=== PATIENT | female | born 1995 | race Caucasian/White ===

== ENCOUNTER 2024-07-11 13:22 | Emergency (ER) | payer OTHER ==
--- NOTE | 2024-07-11 14:03 | ED ---
Extremity Problem HPI - General Source: patient, RN notes reviewed Mode of arrival: ambulatory Limitations: no limitations <Sharron Pacheco - Last Filed: 07/11/24 14:01> - General Source: patient, RN notes reviewed Mode of arrival: ambulatory Limitations: no limitations - History of Present Illness MD Complaint: extremity pain, extremity swelling -: days(s) Location: right, other Radiation: none (Foot) Quality: aching Consistency: constant, intermittent Improves with: immobilization Worsens with: nothing, weight bearing, walking Associated Symptoms: denies other symptoms <Mike Cole - Last Filed: 07/19/24 19:28> - General Chief complaint: Extremity Problem,Nontraumatic Stated complaint: glass in foot Time Seen by Provider: 07/11/24 14:01 - History of Present Illness Initial comments: Quick [id number] female presenting with foreign body in right foot x 2 days. Patient reports she was walking barefoot in her cousins basement 2 nights ago and believes she stepped on a shard of glass. Has had pain with weightbearing on the heel of her foot since then and believes the shard of glass is lodged in the heel. Last tetanus unknown. (Sharron Pacheco) This is a 28-year-old female who believes she may have stepped on some glass still having some pain there (Mike Cole) - Related Data Allergies Allergy/AdvReac Type Severity Reaction Status Date / Time No Known Allergies Allergy Verified 07/11/24 13:39 Review of Systems ROS Other: All systems not noted in ROS Statement are negative. <Sharron Pacheco - Last Filed: 07/11/24 14:01> ROS Other: All systems not noted in ROS Statement are negative. <Mike Cole - Last Filed: 07/19/24 19:28> ROS Statement: Those systems with pertinent positive or pertinent negative responses have been documented in the HPI. Past Medical History Past Medical History: Asthma History of Any Multi-Drug Resistant Organisms: None Reported Past Surgical History: No Surgical Hx Reported Past Psychological History: Anxiety, Depression Smoking Status: Current every day smoker Past Alcohol Use History: None Reported Past Drug Use History: None Reported <Sharron Pacheco - Last Filed: 07/11/24 14:01> General Exam Limitations: no limitations <Sharron Pacheco - Last Filed: 07/11/24 14:01> General appearance: alert, in no apparent distress Head exam: Present: atraumatic, normocephalic, normal inspection Eye exam: Present: normal appearance, PERRL, EOMI. Absent: scleral icterus, conjunctival injection, periorbital swelling ENT exam: Present: normal exam, mucous membranes moist Neck exam: Present: normal inspection. Absent: tenderness, meningismus, lymphadenopathy Respiratory exam: Present: normal lung sounds bilaterally. Absent: respiratory distress, wheezes, rales, rhonchi, stridor Cardiovascular Exam: Present: regular rate, normal rhythm, normal heart sounds. Absent: systolic murmur, diastolic murmur, rubs, gallop, clicks GI/Abdominal exam: Present: soft, normal bowel sounds. Absent: distended, tenderness, guarding, rebound, rigid Extremities exam: Present: normal inspection, full ROM, normal capillary refill. Absent: tenderness, pedal edema, joint swelling, calf tenderness Back exam: Present: normal inspection Neurological exam: Present: alert, oriented X3, CN II-XII intact Psychiatric exam: Present: normal affect, normal mood Skin exam: Present: warm, dry, intact, normal color. Absent: rash <Mike Cole - Last Filed: 07/19/24 19:28> - General Exam Comments Initial Comments: Visual Physical Exam Vital signs reviewed General: Well-appearing, nontoxic, no acute distress. Head: Normocephalic, atraumatic Eyes: PERRLA, EOMI ENT: Airway patent Chest: Nonlabored breathing Skin: No visual rash, normal skin tone Neuro: Alert and oriented 3 Musculoskeletal: No gross abnormalities (Sharron Pacheco) Course <Mike Cole - Last Filed: 07/19/24 19:28> Vital Signs 07/11/24 07/11/24 13:37 16:14 Temperature 98.2 F 98.1 F Pulse Rate 84 76 Respiratory 20 18 Rate Blood Pressure 128/87 128/68 O2 Sat by Pulse 99 96 Oximetry - Reevaluation(s) Reevaluation #1: 07/11/24 15:17 Medical records reviewed (Mike Cole) Reevaluation #2: 07/11/24 15:17 Patient symptoms improved (Mike Cole) Reevaluation #3: 07/11/24 15:17 Patient informed of results questions answered (Mike Cole) Reevaluation #4: Was pt. sent in by a medical professional or institution (ELIDA Guaman, LINUX SERVER ADMINISTRATOR, urgent care, hospital, or group home...) When possible be specific @ -no Did you speak to anyone other than the patient for history (EMS, parent, family, police, friend...)? What history was obtained from this source @ -no Did you review nursing and triage notes (agree or disagree)? Why? @ -agree Are old charts reviewed (outside hosp., previous admission, EMS record, old EKG, old radiological studies, urgent care reports/EKG's, group home records)? Report findings @ -yes Differential Diagnosis (chest pain, altered mental status, abdominal pain women, abdominal pain men, vaginal bleeding, weakness, fever, dyspnea, syncope, headache, dizziness, GI bleed, back pain, seizure, CVA, palpatations, mental health, musculoskeletal)? @ -prior EKG interpreted by me (3pts min.). @ -no X-rays interpreted by me (1pt min.). @ -yes negative for acute disease CT interpreted by me (1pt min.). @ -no U/S interpreted by me (1pt. min.). @ -no What testing was considered but not performed or refused? (CT, X-rays, U/S, labs)? Why? @ -none What meds were considered but not given or refused? Why? @ -none Did you discuss the management of the patient with other professionals (professionals i.e. ELIDA Guaman, LINUX SERVER ADMINISTRATOR, lab, RT, psych nurse, director social, rhinestone setter, teacher, army senior officer, watch case polisher)? Give summary @ -no Was smoking cessation discussed for >3mins.? @ -no Was critical care preformed (if so, how long)? @ -no Were there social determinants of health that impacted care today? How? (Homelessness, low income, unemployed, alcoholism, drug addiction, transportation, low edu. Level, literacy, decrease access to med. care, half-way, rehab)? @ -none Was there de-escalation of care discussed even if they declined (Discuss DNR or withdrawal of care, Hospice)? DNR status @ -no What co-morbidities impacted this encounter? (DM, HTN, Smoking, COPD, CAD, Cancer, CVA, ARF, Chemo, Hep., AIDS, mental health diagnosis, sleep apnea, morbid obesity)? @ -none Was patient admitted / discharged? Hospital course, mention meds given and route, prescriptions, significant lab abnormalities, going to OR and other pertinent info. @ - 28 female with foreign body sensation in her heel. No foreign body noted. Patient can be discharged home Discharge Undiagnosed new problem with uncertain prognosis? @ -no Drug Therapy requiring intensive monitoring for toxicity (Heparin, Nitro, Insulin, Cardizem)? @ -no Were any procedures done? @ -no Diagnosis/symptom? @ -Foot pain Acute, or Chronic, or Acute on Chronic? @ -Acute Uncomplicated (without systemic symptoms) or Complicated (systemic symptoms)? @ -Complicated Side effects of treatment? @ -no Exacerbation, Progression, or Severe Exacerbation? @ -exacerbation Poses a threat to life or bodily function? How? (Chest pain, USA, AR, pneumonia, PE, COPD, DKA, ARF, appy, cholecystitis, CVA, Diverticulitis, Homicidal, Suicidal, threat to staff... and all critical care pts) @ -no (Mike Cole) Medical Decision Making <Sharron Pacheco - Last Filed: 07/11/24 14:01> - Radiology Data Radiology results: report reviewed (X-rays negative for acute disease), image reviewed <Mike Cole - Last Filed: 07/19/24 19:28> - Medical Decision Making I completed the quick note portion of this chart signed Sharron Pacheco PA-C (Sharron Pacheco) 28 female with foreign body sensation in her heel. No foreign body noted. Patient can be discharged home (Mike Cole) Disposition <Sharron Pacheco - Last Filed: 07/11/24 14:01> Is patient prescribed a controlled substance at d/c from ED?: No Time of Disposition: 15:20 <Mike Cole - Last Filed: 07/19/24 19:28> Clinical Impression: Foot pain, right Disposition: HOME SELF-CARE Condition: Good Instructions (If sedation given, give patient instructions): Soft Tissue Foreign Body (ED) Referrals: [facility] [NON-STAFF] - 1-2 days [facility] [NON-STAFF] - 1-2 days None,Stated [Primary Care Provider] - 1-2 days Forms: Area PCPs
--- NOTE | 2024-07-11 14:50 | XR ---
EXAMINATION TYPE: XR foot complete RT DATE OF EXAM: 07/11/2024 COMPARISON: None HISTORY: Foreign body in foot stepped on glass TECHNIQUE: Review right foot FINDINGS: No acute fracture or dislocation is evident. Joint spaces are preserved. Soft tissues are n ormal. No radiopaque foreign body is identified. IMPRESSION: 1. No radiopaque foreign body radiographically apparent. Follow-up can be performed as clinically in dicated [facility], , 07/11/2024 2:48 PM
[2024-07-11 16:16] VITALS: BP 128/68; PULSE 76; RESP 18; TEMP 98.1
== END 2024-07-11 16:17 | disposition home or self-care (01) ==
LOC: EC 13:22
CPT/HCPCS: 99283